=== PATIENT | female | born 1960 | race Caucasian/White ===

== ENCOUNTER 2024-06-03 18:16 | Emergency (ER) | payer OTHER ==
[2024-06-03] MEDS: Bacitracin Oint 1 GM U/D Packet TOP ONE (19:52)
== END 2024-06-03 19:54 | disposition home or self-care (01) ==
LOC: JP.ED 18:16
DX: S61.210A Laceration without foreign body of right index finger without damage to nail, initial encounter (principal); I10 Essential (primary) hypertension; E03.9 Hypothyroidism, unspecified; Z87.891 Personal history of nicotine dependence; Z79.890 Hormone replacement therapy; Z79.899 Other long term (current) drug therapy; Z88.7 Allergy status to serum and vaccine; W26.0XXA Contact with knife, initial encounter
CPT/HCPCS: 12001; 99283